=== PATIENT | female | born 2000 | race Caucasian/White ===

== ENCOUNTER 2024-07-10 00:47 | Emergency (ER) | payer MEDICAID ==
[~2024-07-10] VITALS: Ht 160 cm; Wt 95.3 kg
[2024-07-10 01:04] VITALS: BP_SYST 118; PULSE 98; RESP 16; TEMP 97; O2SAT 97
[2024-07-10] MEDS ORDERED: VIS25 PO (03:36)
[2024-07-10 03:47] VITALS: BP_SYST 115; PULSE 77; RESP 18; TEMP 98.6; O2SAT 98
== END 2024-07-10 03:47 | disposition home or self-care (01) ==
LOC: SED 00:47
DX: F41.9 Anxiety disorder, unspecified (principal); R06.02 Shortness of breath; R00.0 Tachycardia, unspecified; Z79.899 Other long term (current) drug therapy
CPT/HCPCS: 71045; 81025; 93005; 99285